=== PATIENT | female | born 1995 | race African-American/Black ===

== ENCOUNTER 2017-03-26 15:59 | Emergency (ER) | payer SELFPAY ==
[~2017-03-26] VITALS: Ht 170.2 cm; Wt 97.5 kg
[2017-03-26 16:20] VITALS: BP 136/64
[2017-03-26] MEDS ORDERED: predniSONE 20 MG TABLET PO ONE (16:45)
[2017-03-26] MEDS ORDERED: IPRATRPIUM/ALBUTEROL 0.5/2.5MG 3 ML NEBU. NEB ONE (16:45)
--- NOTE | 2017-03-26 16:47 | PHYS DOC ---
Past Medical History Past Medical History: Asthma Past Surgical History: No Surgical History Alcohol Use: None Drug Use: None Adult General Chief Complaint Chief Complaint: ASTHMA HPI HPI Patient is a 22 year old female presents to the emergency department with a history of cough, congestion. Patient states she has had allergy type symptoms for the last 4 days. She states she has also been problems with her asthma, SOA , cough that is productive with green color secretions. She also states she has increase chest discomfort with coughing and deep breathing. She states the inhalers and nebulizer tx help briefly with all the symptoms. She denies fever, chills, nausea or vomiting. Review of Systems Review of Systems Constitutional: Denies fever or chills [] Eyes: Denies change in visual acuity, redness, or eye pain [] HENT: nasal congestion denies sore throat [] Respiratory: cough and shortness of breath [] Cardiovascular: No additional information not addressed in HPI [] GI: Denies abdominal pain, nausea, vomiting, bloody stools or diarrhea [] : Denies dysuria or hematuria [] Musculoskeletal: Denies back pain or joint pain [] Integument: Denies rash or skin lesions [] Neurologic: Denies headache, focal weakness or sensory changes [] Endocrine: Denies polyuria or polydipsia [] Current Medications Current Medications Current Medications Medications (Trade) Dose Ordered Sig/Stephen Start Time Stop Time Status Last Admin Dose Admin Albuterol/ Ipratropium (Duoneb) 3 ml 1X ONCE 03/26/17 16:45 03/26/17 16:46 DC Prednisone (Prednisone) 40 mg 1X ONCE 03/26/17 16:45 03/26/17 16:46 DC 03/26/17 16:47 40 MG Allergies Allergies Allergies Coded Allergies Type Severity Reaction Last Updated Verified No Known Drug Allergies 04/10/14 No Physical Exam Physical Exam Constitutional: Well developed, well nourished, no acute distress, non-toxic appearance. [] HENT: Normocephalic, atraumatic, bilateral external ears normal, oropharynx moist, no oral exudates, nose normal. Bilateral TM normal, Throat with redness and post nasal drip noted, clear in color. Throat without exudate noted. Eyes: PERRLA, EOMI, conjunctiva normal, no discharge. [] Neck: Normal range of motion, no tenderness, supple, no stridor. [] Cardiovascular:Heart rate regular rhythm, no murmur [] Lungs & Thorax: Bilateral breath sounds with wheezes noted anteriorly bilaterally Skin: Warm, dry, no erythema, no rash. [] Extremities: No tenderness, no cyanosis, no clubbing, ROM intact, no edema. [] Neurologic: Alert and oriented X 3, normal motor function, normal sensory function, no focal deficits noted. [] Psychologic: Affect normal, judgement normal, mood normal. [] Current Patient Data Vital Signs Vital Signs Date Time Temp Pulse Resp B/P (MAP) Pulse Ox O2 Delivery O2 Flow Rate FiO2 03/26/17 16:20 98.5 87 20 98 Room Air 98.5 EKG EKG [] Radiology/Procedures Radiology/Procedures [] Course & Med Decision Making Course & Med Decision Making Pertinent Labs and Imaging studies reviewed. (See chart for details) Patient was provided with duoneb treatment here in the emergency department in which patient states she is able to breath much better. Patient was provided with prednisone here in the emergency department. Patient will be discharged home with recommendations to use nebulizer tx as prescribed. Albuterol inhaler will be provided for patient as a rescue inhaler. Patient will be placed on prednisone. Recommended Zyrtec to help with allergies. Recommended followup with primary care provider in 3-5 days. Signs and symptoms to return to the emergency department has been provided. All questions and concerns have been answered at patients bedside. [] Dragon Disclaimer Dragon Disclaimer This electronic medical record was generated, in whole or in part, using a voice recognition dictation system. Departure Departure Impression: Primary Impression: Asthma exacerbation Disposition: 01 HOME, SELF-CARE Condition: STABLE Referrals: NO PCP (PCP) Patient Instructions: Asthma, Adult, [id number] Additional Instructions: Activity as tolerated Medication as prescribed Albuterol inhaler every 4-6 hours as needed for shortness of breath or wheezing You may continue to use the nebulizer treatment as well for shortness of breath or wheezing Followup with your primary care provider in 3-5 days Return to emergency department as needed for signs and symptoms that become worse. Scripts Azithromycin (ZITHROMAX) 250 Mg Tablet 250 MG PO DAILY for ANTI-BIOTIC, #6 TAB 0 Refills Take 2 tablets today then 1 tablet daily until gone Prov: DUONG MORALES APRN 03/26/17 Albuterol Sulfate (PROAIR HFA INHALER) 8.5 Gm Hfa.aer.ad 1 PUFF INH PRN Q6HRS Y for SHORTNESS OF BREATH, #1 INHALER 0 Refills Prov: DUONG MORALES APRN 03/26/17 Prednisone (PREDNISONE) 20 Mg Tablet 40 MG PO DAILY for 7 Days, #14 TAB Prov: DUONG MORALES APRN 03/26/17 DUONG MORALES APRN Mar 26, 2017 16:47
[2017-03-26] MEDS ORDERED: PROAIR HFA8.5 GM INH (17:19)
[2017-03-26] MEDS ORDERED: PRED20TA PO (17:19)
[2017-03-26] MEDS ORDERED: AZIT250T PO (17:19)
== END 2017-03-26 17:28 | disposition home or self-care (01) ==
LOC: ER 15:59
DX: J45.901 Unspecified asthma with (acute) exacerbation (principal)
CPT/HCPCS: 94250; 94640; 99283; J7512